=== PATIENT | male | born 1965 | race African-American/Black ===

== ENCOUNTER 2021-04-28 19:08 | Inpatient (IN) | payer MEDICAID ==
[~2021-04-28] VITALS: Ht 165.1 cm; Wt 81.6 kg
[~2021-04-28 19:08] MED LIST: ALUMINUM HYDROXIDE PO; DOCU-138 PO; HALO5TAB PO; LORA2TAB2 PO; MILK OF MAGNESIA PO; TEMA30CA5 PO; TOPUD PO
[2021-04-28 23:44] LABS: BASOPHILS % 0.5 % (0.0-2.0); EOSINOPHILS % 0.9 % (0.0-5.0); HEMATOCRIT. 38.9 % (42.0-52.0); HEMOGLOBIN. 12.7 g/dL (14.0-18.0); LYMPHOCYTES % 21.2 % (20.0-50.0); MEAN CORPUSCULAR HEMOGLOBIN 28.4 pg (28.0-32.0); MEAN CORPUSCULAR VOLUME 87.1 fL (80.0-94.0); MEAN PLATELET VOLUME 7.4 fl (7.4-10.4); MONOCYTES % 8.1 % (2.0-8.0); NEUTROPHILS % 69.3 % (40.0-76.0); PLATELET 382 x1000/uL (130-400); RED BLOOD CELL COUNT 4.47 mill/uL (4.7-6.1); RED CELL DISTRIBUTION WIDTH 15.3 % (11.6-14.6)
[2021-04-28 23:52] LABS: CHLORIDE 105 mEq/L (98-107)
[2021-04-29] MEDS ORDERED: HYDROCODONE/ACETAMINOPHEN 5/325MG TABLET PO PRN (02:15)
[2021-04-29] MEDS ORDERED: ONDANSETRON HCL 4MG/2ML INJ IV PRN (02:15)
[2021-04-29] MEDS ORDERED: ACETAMINOPHEN 325MG TABLET PO PRN ×2 (02:15)
[2021-04-29] MEDS ORDERED: MAGNESIUM/ALUMINUM HYDROXIDE/SIMETHICONE 30ML UDC PO PRN (02:15)
[2021-04-29] MEDS ORDERED: GUAIFENESIN 200MG/10ML SUGAR FREE UDC PO PRN (02:15)
[2021-04-29] MEDS ORDERED: NALOXONE HCL 0.4MG/ML VIAL IV PRN (02:30)
[2021-04-29 03:06] LABS: FOLIC ACID (FOLATE) SERUM 15.7 ng/mL (>5.38)
[2021-04-29 04:00] VITALS: BP 123/55
[2021-04-29 04:20] VITALS: BP 123/55
[2021-04-29] MEDS ORDERED: METF-415 PO (05:35)
[2021-04-29] MEDS ORDERED: IBUP-2029 PO (05:35)
[2021-04-29] MEDS ORDERED: HALO100V4 IM (05:35)
[2021-04-29] MEDS ORDERED: CHOL-36 PO (05:35)
[2021-04-29] MEDS ORDERED: TAMS-11 PO (05:35)
[2021-04-29] MEDS ORDERED: ATOR20TA65 PO (05:35)
[2021-04-29] MEDS ORDERED: BENZ1TAB7 PO (05:35)
[2021-04-29] MEDS ORDERED: LISI-186 PO (05:35)
[2021-04-29 07:58] VITALS: BP 118/53
[2021-04-29 08:10] LABS: CLARITY URINE CLOUDY (CLEAR); COLOR URINE YELLOW (YELLOW); KETONES URINE NEGATIVE (NEGATIVE); LEUKOCYTE ESTERASE URINE 2+ (NEGATIVE); NITRITE URINE POSITIVE (NEGATIVE); OCCULT BLOOD URINE NEGATIVE (NEGATIVE); PH URINE 5.5 (4.5-8.0); PROTEIN URINE NEGATIVE (NEGATIVE); UROBILINOGEN URINE 0.2 E.U./dL (0.2-1.0)
[2021-04-29] MEDS: ENOXAPARIN 40MG/0.4ML SYR SUBCUT SCH (08:22)
[2021-04-29] MEDS ORDERED: CEFTRIAXONE 1 G PREMIX 50 ML IV SCH (09:15)
[2021-04-29] MEDS: TAMSULOSIN HCL 0.4MG SR CAPSULE PO SCH (11:02)
[2021-04-29] MEDS: CEFTRIAXONE 1,000 MG in DEXTROSE 5% WATER 50 ML IV SCH (11:02)
[2021-04-29 12:00] VITALS: BP 107/64
[2021-04-29 16:11] VITALS: BP 122/63
[2021-04-29 20:00] VITALS: BP 110/70
[2021-04-30] VITALS: BP 119/72
[2021-04-30 04:00] VITALS: BP 131/88
[2021-04-30] MEDS: TAMSULOSIN HCL 0.4MG SR CAPSULE PO SCH (08:37)
[2021-04-30] MEDS: ENOXAPARIN 40MG/0.4ML SYR SUBCUT SCH (08:37)
[2021-04-30] MEDS: CEFTRIAXONE 1,000 MG in DEXTROSE 5% WATER 50 ML IV SCH (09:59)
[2021-04-30 17:20] VITALS: BP 130/84
[2021-04-30 17:21] VITALS: BP 130/84
[2021-04-30] MEDS ORDERED: SULF1TAB48 PO (17:22)
[2021-04-30] MEDS ORDERED: ATORVASTATIN CALCIUM 20MG TABLET PO SCH (21:00)
== END 2021-04-30 18:12 | disposition home or self-care (01) | DRG 463 ==
LOC: ER 19:08 → 6WST 04-29 00:13 → SUPCPDRO 04-29 01:22 → ENRESERV 04-29 02:43
PROVIDERS: ADMIT Internal Medicine; ATTEND Internal Medicine
DX: N39.0 Urinary tract infection, site not specified (principal); G90.8 Other disorders of autonomic nervous system; D64.9 Anemia, unspecified; E11.9 Type 2 diabetes mellitus without complications; E78.5 Hyperlipidemia, unspecified; B96.89 Other specified bacterial agents as the cause of diseases classified elsewhere; I10 Essential (primary) hypertension; Z20.822 Contact with and (suspected) exposure to COVID-19; N40.0 Benign prostatic hyperplasia without lower urinary tract symptoms; R00.1 Bradycardia, unspecified; Z59.00 Homelessness unspecified; Z87.891 Personal history of nicotine dependence
CPT/HCPCS: 36415; 71045; 80053; 81003; 82607; 82746; 83880; 84443; 84484; 85025; 87077; 87186; 87426; 93005; 93306; 99285; J0696; J1650; J7040; J7060